=== PATIENT | female | born 1985 | race African-American/Black ===

== ENCOUNTER 2016-10-07 07:02 | Emergency (ER) | payer SELFPAY ==
[2016-10-07 07:13] VITALS: BMI 29.9
--- NOTE | 2016-10-07 07:31 | PDOC ---
History of Present Illness - General Chief Complaint: Allergic Reaction Stated Complaint: ALLERGIC REACTION Time Seen by Provider: 10/07/16 07:30 History Source: Patient Exam Limitations: No Limitations - History of Present Illness Initial Comments: 31 yo AA with h/o pretrolium jelly allergy presented to the ED with face swelling since last night. She stated that last night she noticed her upper lip had tingling and swelling and woke up this morning with eye swelling and severe itching on her face and arms. She was recovering from a recent allergy from beginning of September, for which she's able to identify the trigger, most likely being pretrolium jelly. However, this time she can't remember what triggered the allergy. Denies new medication, possible food trigger, fever, chills, sob, chest pain. Past History - Past Medical History Allergies/Adverse Reactions: Allergies Allergy/AdvReac Type Severity Reaction Status Date / Time petrolatum,white Allergy Intermediate Rash Verified 10/07/16 07:09 [From Petroleum Jelly] Home Medications: Ambulatory Orders No Home Medications 0 dose .ROUTE UTDICT 01/26/13 Prednisone [Deltasone -] 40 mg PO DAILY #5 tablet 10/07/16 Other medical history: seasonal allergy - Psycho/Social/Smoking Cessation Hx Anxiety: No Suicidal Ideation: No Smoking Status: No Smoking History: Never smoked Have you smoked in the past 12 months: No Number of Cigarettes Smoked Daily: 0 Information on smoking cessation initiated: No Hx Alcohol Use: No Drug/Substance Use Hx: No Substance Use Type: None Review of Systems - Review of Systems Constitutional: No: Chills, Fever HEENTM: Yes: Mouth Swelling, Other (eye swelling). No: Throat Pain, Difficulty Swallowing Respiratory: No: Cough, Shortness of Breath Cardiac (ROS): No: Chest Pain ABD/GI: No: Nausea, Vomiting : No: Dysuria Integumentary: Yes: Other (itchiness on the face) *Physical Exam - Vital Signs Last Vital Signs Temp Pulse Resp BP Pulse Ox 98.0 F 72 18 134/82 100 10/07/16 07:09 10/07/16 07:09 10/07/16 07:09 10/07/16 07:09 10/07/16 07:09 - Physical Exam General Appearance: No: Apparent Distress HEENT: positive: CARLOS, Pharynx Normal, Other (mouth swelling and under the eye swelling). negative: Pharyngeal Erythema, Tonsillar Exudate, Tonsillar Erythema , Rhinorrhea, Sinus Tenderness Neck: positive: Trachea midline, Supple. negative: Lymphadenopathy (R), Lymphadenopathy (L) Respiratory/Chest: positive: Lungs Clear, Normal Breath Sounds Cardiovascular: positive: Regular Rhythm, Regular Rate, S1, S2. negative: Murmur Integumentary: positive: Swelling (under the eyes and mouth) Neurologic: positive: Fully Oriented, Alert Medical Decision Making - Medical Decision Making 10/07/16 08:03 31 yo F seen in the ED for mouth and eye swelling 2/2 allergic reaction. Will give benadryl, pepcid and prednisone. Will reassess after taking the medications. *DC/Admit/Observation/Transfer Diagnosis at time of Disposition: Allergic reaction Qualifiers: Encounter type: initial encounter Qualified Code(s): T78.40XA - Allergy, unspecified, initial encounter - Discharge Dispostion Disposition: HOME Condition at time of disposition: Stable Admit: No - Prescriptions Prescriptions: Prednisone [Deltasone -] 40 mg PO DAILY #5 tablet - Patient Instructions Printed Discharge Instructions: DI for General Allergic Reactions Additional Instructions: Please continue to take pepcid, benadryl and prednisone 40mg for 5 days. Please follow up with your primary care doctor, who can check blood-work for general allergies and consider visiting an asset recovery specialist for a more diverse allergy panel. Please return to the emergency department or your primary care doctor for worsening or continued symptoms.
[2016-10-07] MEDS ORDERED: diphenhydrAMINE HCL 25 MG CAPSULE (FP) PO ONE ×2 (07:57→08:14)
[2016-10-07] MEDS ORDERED: RANITIDINE HCL 150 MG TABLET (FP) PO ONE (07:59)
[2016-10-07] MEDS ORDERED: predniSONE 20 MG TABLET (UD) PO ONE (08:01)
--- NOTE | 2016-10-07 08:01 | PDOC ---
Attending Attestation - Resident Resident Name: Macho Trevino - ED Attending Attestation I have performed the following: I have examined & evaluated the patient, The case was reviewed & discussed with the resident, I agree w/resident's findings & plan - HPI HPI: 10/07/16 07:59 31-year-old female with a past medical history of prior ALLERGIC reactions to products containing petroleum jelly She started with some lip tingling and swelling, and then facial and arm itching , prompting her to come to the emergency department She does not recall using any products with petroleum jelly She denies any tongue swelling, wheezing, throat swelling, or difficulty speaking or breathing - Physicial Exam PE: 10/07/16 08:00 Physical exam Last Vital Signs Temp Pulse Resp BP Pulse Ox 98.0 F 72 18 134/82 100 10/07/16 07:09 10/07/16 07:09 10/07/16 07:09 10/07/16 07:09 10/07/16 07:09 Patient is alert and ambulatory and answering questions Speaking without difficulty There is some facial swelling, but no tongue uvula, or oropharynx edema Lungs - clear Heart - regular - Medical Decision Making 10/07/16 08:01 Will start with Benadryl, Pepcid, and prednisone 10/07/16 10:51 Patient improving after prednisone and meds Will discharge to home on prednisone and Benadryl and Pepcid
[2016-10-07] MEDS ORDERED: predniSONE 20 MG TABLET (UD) ONE (08:14)
[2016-10-07] MEDS ORDERED: RANITIDINE HCL 150 MG TABLET (FP) ONE (08:14)
[2016-10-07 11:21] VITALS: BP 116/78; PULSE 74; TEMP 97.8
== END 2016-10-07 11:21 | disposition home or self-care (01) ==
LOC: JER 07:02
DX: T78.40XA Allergy, unspecified, initial encounter (principal)
CPT/HCPCS: 99282-25